=== PATIENT | female | born 1965 | race Caucasian/White ===

== ENCOUNTER 2019-05-17 15:23 | Emergency (ER) | payer MEDICAID ==
[~2019-05-17] VITALS: Ht 162.6 cm; Wt 70.0 kg
[~2019-05-17 15:23] MED LIST: CIPR-113 PO; MAGN296S50 PO; ONDA4TAB6 PO
[2019-05-17 15:39] VITALS: BP 169/144
--- NOTE | 2019-05-17 18:04 | NUR ---
Maggie quiroz in ED - 05/17/19 at 1816 by MATILDA EUGENE NURSE AT BEDSIDE, LEFT EXTENDED PIV.
--- NOTE | 2019-05-17 18:15 | NUR ---
PT SLEEPING LAYING ON LEFT SIDE, RESPIRATIONS EVEN AND UNLABORED NO DISTRESSS NOTED AT THIS TIME.
== END 2019-05-17 18:46 | disposition left against medical advice (07) ==
LOC: ER 15:24
DX: M54.5 Low back pain (principal); Z53.21 Procedure and treatment not carried out due to patient leaving prior to being seen by health care provider

== ENCOUNTER 2019-06-08 21:34 | Emergency (ER) | payer MEDICAID ==
[~2019-06-08] VITALS: Ht 162.6 cm; Wt 66.4 kg
[2019-06-08] MEDS ORDERED: LORazepam 2 mg/ml vial IV ONE (22:05)
[2019-06-08] MEDS ORDERED: ondansetron/PF 4mg/2ml inj IV ONE (22:05)
[2019-06-08] MEDS ORDERED: morphine 4 MG/ML inj SYRINge IV PRN (22:05)
[2019-06-08] MEDS ORDERED: normal saline 1000ML IV soln IVB ONE (22:05)
[2019-06-08 22:08] LABS: BASOPHILS # (AUTO) 0.1 X10'3 (0-0.2); BASOPHILS % (AUTO) 0.7 % (0-1); EOSINOPHILS # (AUTO) 0.1 X10'3 (0-0.9); EOSINOPHILS % (AUTO) 0.9 % (0-6); HEMOGLOBIN 15.3 g/dl (12.0-16.0); LYMPHOCYTES % (AUTO) 14.5 % (21-51); MEAN CORPUSCULAR HEMOGLOBIN 35.1 PG (27.0-31.0); MEAN CORPUSCULAR HGB CONC 34.8 g/dL (33.0-36.5); MEAN CORPUSCULAR VOLUME 100.8 FL (78-98); MEAN PLATELET VOLUME 7.8 FL (7.4-10.4); MONOCYTES # (AUTO) 1.1 X10'3 (0-0.9); MONOCYTES % (AUTO) 7.6 % (2-12); NEUTROPHILS # (AUTO) 10.6 X10'3 (1.8-7.7); NEUTROPHILS % (AUTO) 76.3 % (42-75); PLATELET COUNT 291 X10'3 (140-440); RED BLOOD COUNT 4.36 X10'6 (4.20-5.60); RED CELL DISTRIBUTION WIDTH 13.5 % (11.5-14.5); WHITE BLOOD COUNT 13.9 X10'3 (4.5-11.0)
[2019-06-08 22:27] LABS: ALANINE AMINOTRANSFERASE 33 U/L (12-78); ALBUMIN 4.1 G/DL (3.4-5.0); ALKALINE PHOSPHATASE 98 IU/L (46-116); ANION GAP 11 (8-16); ASPARTATE AMINO TRANSFERASE 25 U/L (10-37); BILIRUBIN,TOTAL 0.9 MG/DL (0.1-1.0); BLOOD UREA NITROGEN 11 MG/DL (7-18); BUN/CREATININE RATIO 13.8 (6.6-38.0); CALCIUM 9.3 MG/DL (8.5-10.1); CHLORIDE 103 MMOL/L (99-107); GLUCOSE 104 MG/DL (70-104); LIPASE 93 U/L (73-393); POTASSIUM 3.7 MMOL/L (3.5-5.1); SODIUM 139 MMOL/L (135-145); TOTAL CARBON DIOXIDE 25.5 MMOL/L (24-32); TOTAL PROTEIN 8.2 G/DL (6.4-8.2); eGFR 75 ML/MIN
[2019-06-08 22:29] LABS: ETHANOL < 0.010 GM/DL (0.0-0.010)
--- NOTE | 2019-06-08 22:37 | NUR ---
Pt reports some improvement in the pain level and nausea. Pt is aware of the plan for CT scan of her ABD.
[2019-06-08 22:39] LABS: CLARITY,URINE SLIGHTLY CLOUDY (Clear); COLOR,URINE YELLOW (Yellow); GLUCOSE, URINE NEGATIVE (Neg); KETONES,URINE 40 mg/dl (Neg); LEUKOCYTE ESTERASE ,URINE NEGATIVE (Neg); NITRITES, URINE NEGATIVE (Neg); OCCULT BLOOD,URINE TRACE-LYSED (Neg); PROTEIN,URINE NEGATIVE (Neg)
[2019-06-08 22:40] LABS: UA COLLECTION TYPE CLN CATCH MIDSTREAM
[2019-06-08 22:45] LABS: URINE AMPHETAMINE SCREEN NEGATIVE (Neg); URINE BARBITUATE SCREEN NEGATIVE (Neg); URINE BENZODIAZEPINES SCREEN NEGATIVE (Neg); URINE CANNABINOID SCREEN POSITIVE (Neg); URINE COCAINE SCREEN NEGATIVE (Neg); URINE METHADONE SCREEN NEGATIVE (Neg); URINE OPIATE SCREEN NEGATIVE (Neg); URINE PHENCYCLIDINE SCREEN NEGATIVE (Neg)
[2019-06-08 22:50] LABS: BACTERIA,URINE FEW /HPF (Neg); MUCUS STRANDS MANY /LPF (Neg); RBC,URINE 0-2 /HPF (0-2); SQUAMOUS EPITHELIAL CELL,UR MODERATE /LPF (FEW); WBC,URINE NONE SEEN /HPF (0-4)
--- NOTE | 2019-06-08 23:10 | NUR ---
Pt returned from CT scan via w/c. Pt's IV fluid resumed. Pt reports pain is significantly improved.
[2019-06-09] VITALS: BP 126/68
[2019-06-09] MEDS ORDERED: ALBU8.5H8 INH (00:07)
[2019-06-09] MEDS ORDERED: MELO-100 PO (00:07)
[2019-06-09] MEDS ORDERED: GABA-532 PO (00:07)
[2019-06-09] MEDS ORDERED: ONDA4TAB6 PO (00:08)
== END 2019-06-09 00:20 | disposition home or self-care (01) ==
LOC: ER 21:34
DX: K52.9 Noninfective gastroenteritis and colitis, unspecified (principal); F41.9 Anxiety disorder, unspecified; F17.200 Nicotine dependence, unspecified, uncomplicated; Z88.0 Allergy status to penicillin; Z79.2 Long term (current) use of antibiotics; Z79.899 Other long term (current) drug therapy; Z87.19 Personal history of other diseases of the digestive system; Z90.710 Acquired absence of both cervix and uterus
CPT/HCPCS: 36415; 74176; 80053; 80305; 80320; 81001; 83690; 85025; 96361; 96374; 96375; 99284; J2060; J2270; J2405; J7030

== ENCOUNTER 2019-08-17 13:03 | Inpatient (IN) | payer MEDICAID ==
[~2019-08-17] VITALS: Ht 162.6 cm; Wt 68.0 kg
[~2019-08-17 13:03] MED LIST changes: +ALBU8.5H8 INH; -CIPR-113 PO; +GABA-532 PO; -MAGN296S50 PO; +MELO-100 PO
[2019-08-17] MEDS ORDERED: morphine 4 MG/ML inj SYRINge IV ONE (13:25)
[2019-08-17] MEDS ORDERED: aspirin 81mg tab.chew PO ONE (13:25)
[2019-08-17 13:59] LABS: BASOPHILS % (AUTO) 0.6 % (0-1); EOSINOPHILS # (AUTO) 0.1 X10'3 (0-0.9); EOSINOPHILS % (AUTO) 1.7 % (0-6); HEMATOCRIT 47.4 % (35.0-45.0); HEMOGLOBIN 16.1 g/dl (12.0-16.0); LYMPHOCYTES # (AUTO) 2.6 X10'3 (1.1-4.8); LYMPHOCYTES % (AUTO) 35.4 % (21-51); MEAN CORPUSCULAR HEMOGLOBIN 34.1 PG (27.0-31.0); MEAN CORPUSCULAR VOLUME 100.3 FL (78-98); MEAN PLATELET VOLUME 7.6 FL (7.4-10.4); MONOCYTES # (AUTO) 0.9 X10'3 (0-0.9); NEUTROPHILS # (AUTO) 3.6 X10'3 (1.8-7.7); NEUTROPHILS % (AUTO) 49.3 % (42-75); PLATELET COUNT 309 X10'3 (140-440); RED BLOOD COUNT 4.72 X10'6 (4.20-5.60); RED CELL DISTRIBUTION WIDTH 13.2 % (11.5-14.5); WHITE BLOOD COUNT 7.2 X10'3 (4.5-11.0)
[2019-08-17 14:08] LABS: PARTIAL THROMBOPLASTIN TIME 31 SECONDS (22-32)
[2019-08-17 14:12] LABS: CLARITY,URINE CLEAR (Clear); COLOR,URINE YELLOW (Yellow); GLUCOSE, URINE NEGATIVE (Neg); KETONES,URINE NEGATIVE (Neg); LEUKOCYTE ESTERASE ,URINE NEGATIVE (Neg); NITRITES, URINE NEGATIVE (Neg); OCCULT BLOOD,URINE TRACE-INTACT (Neg); PROTEIN,URINE NEGATIVE (Neg); UROBILINOGEN,URINE 0.2 E.U/dL (0.2-1.0)
[2019-08-17 14:13] LABS: UA COLLECTION TYPE CLN CATCH MIDSTREAM
[2019-08-17] MEDS ORDERED: fentaNYL/PF 50MCG/1 ML 2ML syringe IV ONE (14:15)
[2019-08-17] MEDS ORDERED: nitroGLYCERIN 0.2mg/hour patch TD ONE (14:20)
[2019-08-17 14:22] LABS: SQUAMOUS EPITHELIAL CELL,UR FEW /LPF (FEW)
[2019-08-17 14:23] LABS: BACTERIA,URINE FEW /HPF (Neg); RBC,URINE 0-2 /HPF (0-2); WBC,URINE 0-4 /HPF (0-4)
[2019-08-17 14:25] LABS: URINE AMPHETAMINE SCREEN NEGATIVE (Neg); URINE BARBITUATE SCREEN NEGATIVE (Neg); URINE BENZODIAZEPINES SCREEN NEGATIVE (Neg); URINE CANNABINOID SCREEN POSITIVE (Neg); URINE COCAINE SCREEN NEGATIVE (Neg); URINE METHADONE SCREEN NEGATIVE (Neg); URINE OPIATE SCREEN POSITIVE (Neg); URINE PHENCYCLIDINE SCREEN NEGATIVE (Neg)
[2019-08-17] MEDS ORDERED: AMLO5TAB16 PO (14:57)
[2019-08-17] MEDS ORDERED: TIOT4MIS2 IH (14:57)
[2019-08-17] MEDS ORDERED: PROP10DR3 EACHEYE (14:58)
[2019-08-17] MEDS ORDERED: ESTR1PAT81 TD (15:13)
[2019-08-17] MEDS ORDERED: IPRA3AMP31 NEB (15:16)
[2019-08-17] MEDS ORDERED: morphine 2 MG/ML inj. syringe IV PRN ×2 (15:40)
[2019-08-17] MEDS ORDERED: ondansetron/PF 4mg/2ml inj IV PRN (15:40)
[2019-08-17] MEDS ORDERED: mag hydrox/Alum hydrox/simeth 30ml oral suspension PO PRN (15:40)
[2019-08-17] MEDS ORDERED: acetaminophen 325mg tablet PO PRN (15:40)
[2019-08-17] MEDS ORDERED: magnesium hydroxide 30ml (MOM) UD suspension PO PRN (15:40)
[2019-08-17 15:50] LABS: ALANINE AMINOTRANSFERASE 41 U/L (12-78); ALBUMIN 3.6 G/DL (3.4-5.0); ALBUMIN/GLOBULIN RATIO 1.1 (1.1-1.5); ALKALINE PHOSPHATASE 104 IU/L (46-116); ANION GAP 10 (8-16); ASPARTATE AMINO TRANSFERASE 32 U/L (10-37); BILIRUBIN,TOTAL 0.2 MG/DL (0.1-1.0); BLOOD UREA NITROGEN 6 MG/DL (7-18); BUN/CREATININE RATIO 8.3 (6.6-38.0); CALCIUM 8.8 MG/DL (8.5-10.1); CHLORIDE 108 MMOL/L (99-107); CREATININE 0.72 MG/DL (0.40-0.90); GLUCOSE 86 MG/DL (70-104); POTASSIUM 3.8 MMOL/L (3.5-5.1); SODIUM 144 MMOL/L (135-145); TOTAL CARBON DIOXIDE 25.6 MMOL/L (24-32); eGFR 84 ML/MIN
[2019-08-17] MEDS: normal saline 1000ml 1,000 ML IV SCH (16:04)
--- NOTE | 2019-08-17 16:30 | NUR ---
PATIENT ARRIVED TO 316 ALERT, ORIENTED, COOPERATIVE, BUT ANXIOUS AND TEARFUL. SAYS SHE IS SCARED AND WORRIED ABOUT HOSPITALIZATION AND WANTS HER TO GET TO ROOM HE IS ON HIS WAY. VITAL SIGNS STABLE, REASSURED PATIENT THAT SHE IS IN GOOD HANDS AND WE WILL BE MONITORING HER, AND ORIENTED HER TO CALL LIGHT AND NURSING INTERVENTIONS/PROCESS.
[2019-08-17 16:35] VITALS: BP 112/74
[2019-08-17 18:00] VITALS: BP 111/64
[2019-08-17] MEDS ORDERED: nitroGLYCERIN 0.4mg SUBLingual tab SL PRN (19:55)
[2019-08-17] MEDS ORDERED: metoprolol tartrate 1mg/ml inj IV PRN (19:55)
[2019-08-17] MEDS ORDERED: aminophylline 250mg/10ml inj. IV PRN (19:55)
[2019-08-17] MEDS ORDERED: regadenoson 0.4mg/5ml syringe IV ONE (19:55)
[2019-08-17] MEDS: heparin, porcine 5000 units/ml vial SQ SCH (20:34)
[2019-08-17] MEDS: carVEDilol 3.125mg tablet PO SCH (20:34)
[2019-08-17 22:00] VITALS: BP 118/61
[2019-08-18] VITALS (9 sets, daily range): BP systolic 98–142; BP diastolic 65–84
[2019-08-18 02:15] LABS: BASOPHILS % (AUTO) 0.7 % (0-1); EOSINOPHILS # (AUTO) 0.1 X10'3 (0-0.9); EOSINOPHILS % (AUTO) 2.1 % (0-6); HEMATOCRIT 44.3 % (35.0-45.0); LYMPHOCYTES # (AUTO) 2.2 X10'3 (1.1-4.8); LYMPHOCYTES % (AUTO) 38.2 % (21-51); MEAN CORPUSCULAR HEMOGLOBIN 34.1 PG (27.0-31.0); MEAN CORPUSCULAR HGB CONC 33.8 g/dL (33.0-36.5); MEAN CORPUSCULAR VOLUME 100.8 FL (78-98); MEAN PLATELET VOLUME 7.9 FL (7.4-10.4); MONOCYTES # (AUTO) 0.7 X10'3 (0-0.9); MONOCYTES % (AUTO) 12.5 % (2-12); NEUTROPHILS # (AUTO) 2.7 X10'3 (1.8-7.7); NEUTROPHILS % (AUTO) 46.5 % (42-75); PLATELET COUNT 261 X10'3 (140-440); RED BLOOD COUNT 4.39 X10'6 (4.20-5.60); RED CELL DISTRIBUTION WIDTH 13.7 % (11.5-14.5); WHITE BLOOD COUNT 5.7 X10'3 (4.5-11.0)
[2019-08-18 02:20] LABS: ALBUMIN 3.3 G/DL (3.4-5.0); ANION GAP 10 (8-16); BLOOD UREA NITROGEN 7 MG/DL (7-18); BUN/CREATININE RATIO 9.7 (6.6-38.0); CALCIUM 8.5 MG/DL (8.5-10.1); CHLORIDE 107 MMOL/L (99-107); CREATININE 0.72 MG/DL (0.40-0.90); GLUCOSE 87 MG/DL (70-104); POTASSIUM 3.8 MMOL/L (3.5-5.1); SODIUM 142 MMOL/L (135-145); eGFR 84 ML/MIN
--- NOTE | 2019-08-18 06:00 | NUR ---
Patient in room MED 316. I have received report from KAROLINE Alva and had the opportunity to ask questions and assume patient care.
--- NOTE | 2019-08-18 06:30 | NUR ---
Problems reprioritized. Patient report given to Randi, questions answered & plan of care reviewed with .
[2019-08-18] MEDS ORDERED: aspirin 81mg tablet.DR PO SCH (08:00)
[2019-08-18] MEDS ORDERED: atorvastatin 20mg tablet PO SCH (08:00)
[2019-08-18] MEDS: carVEDilol 3.125mg tablet PO SCH (08:00)
[2019-08-18] MEDS: heparin, porcine 5000 units/ml vial SQ SCH (08:44)
[2019-08-18] MEDS: normal saline 1000ml 1,000 ML IV SCH ×2 (08:47→11:49)
--- NOTE | 2019-08-18 12:46 | NUR ---
Paged Dr. Shah regarding med rec: "PAGER ID: [phone] MESSAGE: [phone] Kathi Hidalgo Please reconcile home meds. Thanks Tanya [id number]"
--- NOTE | 2019-08-18 13:24 | NUR ---
Jalyn resulted: "PAGER ID: [phone] MESSAGE: RM [id number] Sterling SHERMAN Jalyn scan resulted. Thanks Tanya ACCE [id number]"
--- NOTE | 2019-08-18 14:01 | NUR ---
Patient stable for discharge per MD orders. Discharge instructions reviewed with patient & all questions answered; no new prescriptions. Provided education on heart healthy diet, disease management, and follow up. PIV discontinued; cannula intact, clean dry dressing in place. hose operator removed. All personal belongings collected and sent with patient. Patient ambulated to [facility] with hospital personnel at 1355, to be transported home by family.
== END 2019-08-18 13:55 | disposition home or self-care (01) | DRG 198 ==
LOC: ER 13:03 → ED HOLD 15:36 → MED 3N 16:37 → OBSVTOIN 08-18 08:37
PROVIDERS: ADMIT Family Medicine; ATTEND Family Medicine
PROC: 4A02XM4 Measurement of Cardiac Total Activity, External Approach (ICD-10-PCS; principal; 2019-08-18)
PROC: 3E033HZ Introduction of Radioactive Substance into Peripheral Vein, Percutaneous Approach (ICD-10-PCS; 2019-08-18)
DX: I20.0 Unstable angina (principal); F17.210 Nicotine dependence, cigarettes, uncomplicated; F41.9 Anxiety disorder, unspecified; I10 Essential (primary) hypertension; J44.9 Chronic obstructive pulmonary disease, unspecified; R19.7 Diarrhea, unspecified; Z90.710 Acquired absence of both cervix and uterus; Z88.0 Allergy status to penicillin
CPT/HCPCS: 36415; 71045; 78452; 80048; 80053; 80305; 81001; 83690; 83735; 83880; 84484; 85025; 85610; 85730; 87081; 93005; 93017; 96374; 96375; 99285; A9500; G0378; J1644; J2270; J2785; J3010; J7030

== ENCOUNTER 2020-03-15 12:27 | Emergency (ER) | payer MEDICAID ==
[~2020-03-15] VITALS: Ht 165.1 cm; Wt 70.5 kg
[~2020-03-15 12:27] MED LIST changes: -ALBU8.5H8 INH; +AMLO5TAB16 PO; +ESTR1PAT81 TD; -GABA-532 PO; +IPRA3AMP31 NEB; -MELO-100 PO; -ONDA4TAB6 PO; +PROP10DR3 EACHEYE; +TIOT4MIS2 IH
[2020-03-15] MEDS ORDERED: ondansetron 4mg rapidly disintigrating tab PO ONE (12:55)
[2020-03-15] MEDS ORDERED: morphine 4 MG/ML inj SYRINge IM ONE (12:55)
[2020-03-15] MEDS ORDERED: orphenadrine citrate 60mg/2ml inj. IM ONE (12:55)
[2020-03-15] MEDS ORDERED: ONDA4TAB6 PO (13:56)
[2020-03-15] MEDS ORDERED: HYDR-4383 PO (13:56)
[2020-03-15 14:32] VITALS: BP 123/89
== END 2020-03-15 14:28 | disposition home or self-care (01) ==
LOC: ER 12:28
DX: M25.551 Pain in right hip (principal); I10 Essential (primary) hypertension; J44.9 Chronic obstructive pulmonary disease, unspecified; F41.9 Anxiety disorder, unspecified; Z90.710 Acquired absence of both cervix and uterus; Z72.89 Other problems related to lifestyle; Z88.0 Allergy status to penicillin; Z79.899 Other long term (current) drug therapy
CPT/HCPCS: 73502; 96372; 99284; J2270; J2360

== ENCOUNTER 2020-05-05 17:39 | Emergency (ER) | payer MEDICAID ==
[~2020-05-05 17:39] MED LIST changes: +HYDR-4383 PO; +ONDA4TAB6 PO
--- NOTE | 2020-05-05 17:49 | NUR ---
PATIENT LEFT PRIOR TO TRIAGE STATING, " I CAN'T WEAR A MASK"
== END 2020-05-05 18:33 | disposition left against medical advice (07) ==
LOC: ER 17:40
DX: N20.0 Calculus of kidney (principal); Z53.21 Procedure and treatment not carried out due to patient leaving prior to being seen by health care provider

== ENCOUNTER 2020-11-09 16:19 | Emergency (ER) | payer MEDICAID ==
[~2020-11-09] VITALS: Ht 165.1 cm; Wt 74.5 kg
[2020-11-09 17:12] LABS: URINE HCG NEGATIVE (NEG)
[2020-11-09 17:13] LABS: CLARITY,URINE TURBID (Clear); COLOR,URINE YELLOW (Yellow); GLUCOSE, URINE NEGATIVE (Neg); KETONES,URINE NEGATIVE (Neg); LEUKOCYTE ESTERASE ,URINE NEGATIVE (Neg); NITRITES, URINE NEGATIVE (Neg); OCCULT BLOOD,URINE TRACE-INTACT (Neg); PROTEIN,URINE NEGATIVE (Neg); UROBILINOGEN,URINE 0.2 E.U/dL (0.2-1.0)
[2020-11-09 17:14] LABS: UA COLLECTION TYPE CLN CATCH MIDSTREAM
[2020-11-09 17:21] LABS: MUCUS STRANDS MANY /LPF (Neg); SQUAMOUS EPITHELIAL CELL,UR MANY /LPF (FEW)
[2020-11-09 17:24] LABS: BACTERIA,URINE 3+ /HPF (Neg); CAL OXALATE CRYSTALS 4+ /HPF (NEGATIVE); RBC,URINE 0-2 /HPF (0-2); WBC,URINE 0-4 /HPF (0-4)
[2020-11-09 17:26] LABS: YEAST FEW /HPF (NEGATIVE)
[2020-11-09 17:28] LABS: BASOPHILS # (AUTO) 0.1 X10'3 (0-0.2); BASOPHILS % (AUTO) 1.3 % (0-1); EOSINOPHILS # (AUTO) 0.1 X10'3 (0-0.9); EOSINOPHILS % (AUTO) 1.4 % (0-6); HEMATOCRIT 48.1 % (35.0-45.0); HEMOGLOBIN 16.4 g/dl (12.0-16.0); LYMPHOCYTES % (AUTO) 28.9 % (21-51); MEAN CORPUSCULAR HEMOGLOBIN 34.6 PG (27.0-31.0); MEAN CORPUSCULAR HGB CONC 34.2 g/dL (33.0-36.5); MEAN CORPUSCULAR VOLUME 101.2 FL (78-98); MEAN PLATELET VOLUME 8.1 FL (7.4-10.4); MONOCYTES # (AUTO) 0.9 X10'3 (0-0.9); MONOCYTES % (AUTO) 9.3 % (2-12); NEUTROPHILS % (AUTO) 59.1 % (42-75); PLATELET COUNT 301 X10'3 (140-440); RED BLOOD COUNT 4.75 X10'6 (4.20-5.60); RED CELL DISTRIBUTION WIDTH 13.4 % (11.5-14.5); WHITE BLOOD COUNT 10.2 X10'3 (4.5-11.0)
[2020-11-09 17:44] LABS: ALANINE AMINOTRANSFERASE 49 U/L (12-78); ALBUMIN 3.7 G/DL (3.4-5.0); ALBUMIN/GLOBULIN RATIO 0.9 (1.1-1.5); ALKALINE PHOSPHATASE 129 IU/L (46-116); ANION GAP 10 (8-16); ASPARTATE AMINO TRANSFERASE 46 U/L (10-37); BILIRUBIN,TOTAL 0.4 MG/DL (0.1-1.0); BLOOD UREA NITROGEN 6 MG/DL (7-18); BUN/CREATININE RATIO 7.5 (6.6-38.0); CALCIUM 9.7 MG/DL (8.5-10.1); CHLORIDE 108 MMOL/L (99-107); GLUCOSE 140 MG/DL (70-104); LIPASE 453 U/L (73-393); POTASSIUM 3.7 MMOL/L (3.5-5.1); SODIUM 146 MMOL/L (135-145); TOTAL CARBON DIOXIDE 28.2 MMOL/L (24-32); TOTAL PROTEIN 7.9 G/DL (6.4-8.2); eGFR 74 ML/MIN
[2020-11-09] MEDS ORDERED: pantoprazole 40 MG vial IV STA (20:28)
[2020-11-09] MEDS ORDERED: ondansetron/PF 4mg/2ml inj IV ONE (20:30)
[2020-11-09] MEDS ORDERED: D5-1/2NS w/20 mEq potassium per 1000ml IV ONE (20:30)
[2020-11-09] MEDS ORDERED: normal saline 1000ML IV soln IVB ONE ×2 (20:30→22:10)
[2020-11-09] MEDS ORDERED: morphine 4 MG/ML inj SYRINge IV ONE (20:30)
[2020-11-09 20:36] LABS: PARTIAL THROMBOPLASTIN TIME 29 SECONDS (22-32)
[2020-11-09 20:38] LABS: ETHANOL 0.042 GM/DL (0.0-0.010); MAGNESIUM 2.1 MG/DL (1.5-2.4)
--- NOTE | 2020-11-09 20:51 | NUR ---
ASSISTING RN WITH PT CARE, PT C/O RUQ ABD PAIN OFF AND ON X1 MONTH, WAS DRINKING 1/5 OF TEQUILA A DAY, DOWN TO 1/2 PINT, +DIARRHEA X4 DAYS, +NAUSEA
[2020-11-09] MEDS ORDERED: PANT20TA18 PO (22:20)
[2020-11-09] MEDS ORDERED: SUCR1TAB34 PO (22:20)
[2020-11-09] MEDS ORDERED: sucralfate 1gm/10ml UD suspension PO ONE (22:25)
[2020-11-09] MEDS ORDERED: LORazepam 2 mg/ml vial IV ONE (22:25)
[2020-11-09 23:12] VITALS: BP 132/90
== END 2020-11-09 23:13 | disposition home or self-care (01) ==
LOC: ER 16:20
DX: K29.20 Alcoholic gastritis without bleeding (principal); K85.90 Acute pancreatitis without necrosis or infection, unspecified; R19.7 Diarrhea, unspecified; R10.12 Left upper quadrant pain; R51.9 Headache, unspecified; I10 Essential (primary) hypertension; J44.9 Chronic obstructive pulmonary disease, unspecified; F41.9 Anxiety disorder, unspecified; Z90.710 Acquired absence of both cervix and uterus; Z72.89 Other problems related to lifestyle; Z88.0 Allergy status to penicillin; Z79.899 Other long term (current) drug therapy
CPT/HCPCS: 36415; 80053; 80320; 81001; 81025; 83690; 83735; 85025; 85610; 85730; 93005; 96361; 96374; 96375; 99284; C9113; J2060; J2270; J2405; J7030